=== PATIENT | male | born 2000 | race African-American/Black ===

== ENCOUNTER 2020-12-31 18:42 | Emergency (ER) | payer SELFPAY ==
--- NOTE | 2020-12-31 19:15 | EDM.PDOC ---
ED HPI GENERAL MEDICAL PROBLEM - General Chief Complaint: General Stated Complaint: HIGH BP,ELEVATED HEART RATE Time Seen by Provider: 12/31/20 19:15 Source of Information: Reports: Patient History Limitations: Reports: No Limitations - History of Present Illness INITIAL COMMENTS - FREE TEXT/NARRATIVE: patient presented to the ER due to a c/o stomach upset and some dry heave. started today,, lasted for few hours before it was resolved on it's own. he denies fever or chills. No diarrhea or stomach pain. Reports that he was started on Adderral 30mg 2 days ago, and since then he has not been feeling any appetite. No symptoms at the moment. Onset: Today Past Medical History Cardiovascular History: Reports: None Respiratory History: Reports: None Gastrointestinal History: Reports: None Neurological History: Reports: None ED ROS GENERAL - Review of Systems Review Of Systems: See Below Constitutional: Reports: No Symptoms HEENT: Reports: No Symptoms Respiratory: Reports: No Symptoms Cardiovascular: Reports: No Symptoms GI/Abdominal: Reports: No Symptoms Musculoskeletal: Reports: No Symptoms Neurological: Reports: No Symptoms ED EXAM, GENERAL - Physical Exam Exam: See Below Exam Limited By: No Limitations General Appearance: Alert, WD/WN, No Apparent Distress Eye Exam: Bilateral Eye: EOMI Head: Atraumatic Neck: Normal Inspection Respiratory/Chest: No Respiratory Distress, Lungs Clear Cardiovascular: Normal Peripheral Pulses, Regular Rate, Rhythm Extremities: Normal Inspection Neurological: Alert, Oriented, Normal Cognition, No Motor/Sensory Deficits Psychiatric: Normal Affect Course - Orders/Labs/Meds Orders: Active Orders 24 hr Category Date Time Status BASIC METABOLIC PANEL,BMP [CHEM] Stat Lab 12/31/20 19:16 Ordered Labs: Laboratory Tests 12/31/20 12/31/20 Range/Units 19:06 19:54 WBC 8.6 (4.0-11.0) K/uL RBC 4.82 (4.50-6.50) M/uL Hgb 15.5 (13.0-18.0) g/dL Hct 44.5 (40.0-54.0) % MCV 92 (76-96) fL MCH 32.2 H (27.0-32.0) pg MCHC 34.8 (31.0-35.0) g/dL RDW 12.0 (11.0-16.0) % Plt Count 289 (150-400) K/uL MPV 10.0 (6.0-10.0) fL Neut % (Auto) 59.0 (45.0-70.0) % Lymph % (Auto) 29.9 (20.0-40.0) % Twiggs % (Auto) 9.0 (3.0-10.0) % Eos % (Auto) 1.6 (1.0-5.0) % Baso % (Auto) 0.5 (0.0-0.5) % Neut # (Auto) 5.08 (2.00-7.50) K/uL Lymph # (Auto) 2.58 (1.50-4.00) K/uL Tw[place]gs # (Auto) 0.78 (0.20-0.80) K/uL Eos # (Auto) 0.14 (0.04-0.40) K/uL Baso # (Auto) 0.04 (0.02-0.10) K/uL SARS CoV-2 RNA Rapid MARTINEZ Negative - Re-Assessments/Exams Free Text/Narrative Re-Assessment/Exam: BP was noted to be slightly elevated to 142/85 HR in 70's labs WNL No symptoms at the moment discussed with patient that his symptoms are probably related to Adderrall as it can increase blood pressure and decrease appetite Departure - Departure Time of Disposition: 20:13 Disposition: Home, Self-Care 01 Condition: Good Clinical Impression: Hypertension Qualifiers: Hypertension type: unspecified Qualified Code(s): I10 - Essential (primary) hypertension - Discharge Information *PRESCRIPTION DRUG MONITORING PROGRAM REVIEWED*: Not Applicable *COPY OF PRESCRIPTION DRUG MONITORING REPORT IN PATIENT DUSTIN: Not Applicable Forms: ED Department Discharge - Problem List & Annotations (1) Hypertension SNOMED Code(s): 52032363 Code(s): I10 - ESSENTIAL (PRIMARY) HYPERTENSION Status: Acute Priority: Medium Qualifiers: Hypertension type: unspecified Qualified Code(s): I10 - Essential (primary) hypertension - Problem List Review Problem List Initiated/Reviewed/Updated: Yes - My Orders Last 24 Hours: My Active Orders 12/31/20 19:16 BASIC METABOLIC PANEL,BMP [CHEM] Stat - Assessment/Plan Last 24 Hours: My Active Orders 12/31/20 19:16 BASIC METABOLIC PANEL,BMP [CHEM] Stat Plan: - recommend to increase fluids intake and remember to eat 3 meals a day while on Adderall, as this medicine can make you lose your appetite - check your BP at least once daily - follow up with your PCP in 1-2 weeks to review your Blood pressure reads - return to the ER if any concerns
== END 2020-12-31 20:25 | disposition home or self-care (01) ==
LOC: LB.ED 18:42
DX: I10 Essential (primary) hypertension (principal); Z20.822 Contact with and (suspected) exposure to COVID-19
CPT/HCPCS: 36415; 80048; 85025; 99282; 99283; U0002